=== PATIENT | female | born 1965 | race African-American/Black ===

== ENCOUNTER 2018-01-08 11:49 | Emergency (ER) | payer OTHER ==
[2018-01-08 12:03] VITALS: BP 139/91; PULSE 75; TEMP 98.4; BMI 36.0
[2018-01-08] MEDS ORDERED: KETOROLAC TROMETHAMINE 30 MG/1 ML VIAL IM ONE (12:19)
--- NOTE | 2018-01-08 12:26 | PDOC ---
History of Present Illness - General Chief Complaint: Pain, Acute Stated Complaint: SHOULDER PAIN Time Seen by Provider: 01/08/18 12:14 History Source: Patient Exam Limitations: No Limitations - History of Present Illness Initial Comments: 01/08/18 12:21 Pt with 3 days pain to the side of neck to shoulder radiates down her arm, pt was traveling and slept in umcomfortable bed woke up with stiff neck. Pain worse with movement. Pt has had this in the past . Pt denies trauma no chest pain or sob. Past History - Past Medical History Allergies/Adverse Reactions: Allergies Allergy/AdvReac Type Severity Reaction Status Date / Time No Known Drug Allergies Allergy Verified 01/08/18 12:03 Home Medications: Ambulatory Orders Cyclobenzaprine HCl [Flexeril -] 10 mg PO TID #21 tablet 01/08/18 Naproxen [Naprosyn] 500 mg PO BID PRN #20 tablet 01/08/18 Anemia: No Asthma: No Cancer: No Cardiac Disorders: No CVA: No COPD: No CHF: No Dementia: No Diabetes: Yes GI Disorders: No Disorders: No HTN: Yes Hypercholesterolemia: No Liver Disease: No Seizures: No Thyroid Disease: No - Surgical History Abdominal Surgery: No Appendectomy: No Cardiac Surgery: No Cholecystectomy: No Lung Surgery: No Neurologic Surgery: Yes (SM CYST ON BRAIN) Orthopedic Surgery: Yes (ARTHROSCOPY, TORN LIGAMENT, LEFT) - Immunization History Immunization Up to Date: Yes - Suicide/Smoking/Psychosocial Hx Smoking Status: No Smoking History: Current some day smoker Have you smoked in the past 12 months: Yes Number of Cigarettes Smoked Daily: 2 Information on smoking cessation initiated: No 'Breaking Loose' booklet given: 08/09/12 Hx Alcohol Use: No Drug/Substance Use Hx: No Substance Use Type: None Hx Substance Use Treatment: No Review of Systems - Review of Systems Able to Perform ROS?: Yes Is the patient limited Peruvian proficient: No Constitutional: No: Symptoms Reported HEENTM: No: Symptoms Reported Respiratory: No: Symptoms reported Cardiac (ROS): No: Symptoms Reported ABD/GI: No: Symptoms Reported : No: Symptoms Reported Musculoskeletal: Yes: Symptoms Reported, Neck Pain Integumentary: No: Symptoms Reported Neurological: No: Symptoms reported *Physical Exam - Vital Signs Last Vital Signs Temp Pulse Resp BP Pulse Ox 98.4 F 75 17 139/91 100 07/13/18 12:00 01/08/18 12:00 01/08/18 12:00 01/08/18 12:00 01/08/18 12:00 - Physical Exam General Appearance: Yes: Nourished, Appropriately Dressed HEENT: positive: EOMI, SABRA, Pharynx Normal Neck: positive: Supple, Tender lateral (soft tissu tenderness right side neck ) . negative: Tender, Lymphadenopathy (L), Tender midline Respiratory/Chest: positive: Lungs Clear, Normal Breath Sounds. negative: Chest Tender Cardiovascular: positive: Regular Rhythm, Regular Rate Musculoskeletal: positive: Normal Inspection Extremity: positive: Normal Capillary Refill, Normal Inspection, Other (pain iwth extension fo right arm 4/5 strenght right arm ) Integumentary: positive: Normal Color, Dry, Warm Neurologic: positive: Fully Oriented, Alert, Normal Mood/Affect, Normal Response , Motor Strength 5/5 Medical Decision Making - Medical Decision Making 01/08/18 12:22 cc: neck strain radiates to right arm, reproduced with neck movement and arm movement, ttp soft tissue lateral neck no bony tenderness neg numbness or tingling will give toradol dc with flexeril and naprosyn pt has orthopedist to follow with 01/08/18 12:27 *DC/Admit/Observation/Transfer Diagnosis at time of Disposition: Muscle strain - Discharge Dispostion Disposition: HOME Condition at time of disposition: Good - Prescriptions Prescriptions: Cyclobenzaprine HCl [Flexeril -] 10 mg PO TID #21 tablet Naproxen [Naprosyn] 500 mg PO BID PRN #20 tablet PRN Reason: Pain - Referrals Referrals: Louis Dwyer [Primary Care Provider] - - Patient Instructions Printed Discharge Instructions: DI for Cervical Radiculopathy Additional Instructions: take the naprosyn as directed take the flexeril muscle relaxant as directed apply topical Biofreeze cream as directed warm compresses follow with your doctor in 3-4 days no heavy lifting avoid overuse of the right arm return if any WORSENING symptoms - Post Discharge Activity
[2018-01-08] MEDS ORDERED: KETOROLAC TROMETHAMINE 30 MG/1 ML VIAL ONE (12:27)
== END 2018-01-08 12:51 | disposition home or self-care (01) ==
LOC: JERFT 11:49 → SUPCPDRO 11:49 → JERFT 12:51
PROC: 3E0233Z Introduction of Anti-inflammatory into Muscle, Percutaneous Approach (ICD-10-PCS; principal; 2018-01-08)
DX: S16.1XXA Strain of muscle, fascia and tendon at neck level, initial encounter (principal); X50.0XXA Overexertion from strenuous movement or load, initial encounter; X50.9XXA Other and unspecified overexertion or strenuous movements or postures, initial encounter; Y93.89 Activity, other specified; Y92.89 Other specified places as the place of occurrence of the external cause; Y99.8 Other external cause status
CPT/HCPCS: 96372; 99281-25

== ENCOUNTER 2018-01-09 23:52 | Emergency (ER) | payer OTHER ==
[2018-01-10 00:48] VITALS: BP 147/86; PULSE 67; TEMP 99.1; BMI 36.0
--- NOTE | 2018-01-10 02:12 | PDOC ---
History of Present Illness - General Chief Complaint: Pain Stated Complaint: SHOULDER PAIN Time Seen by Provider: 01/10/18 01:44 History Source: Patient Exam Limitations: No Limitations - History of Present Illness Initial Comments: 01/10/18 02:09 52-year-old woman past medical history of NIDDM, hypertension, right shoulder surgery who presents emergency Department with right shoulder pain for "the past few days," and shortness of breath. Patient states the pain started after she lifted some heavy luggage. She states the pain is sharp nonradiating with a score of 7/10. She denies chest pain, abdominal pain, nausea, vomiting. Past History - Past Medical History Allergies/Adverse Reactions: Allergies Allergy/AdvReac Type Severity Reaction Status Date / Time No Known Drug Allergies Allergy Verified 01/10/18 00:36 Home Medications: Ambulatory Orders Amlodipine Besylate [Norvasc -] 10 mg PO DAILY 01/10/18 Metformin HCl [Metformin HCl ER] 500 mg PO DAILY 01/10/18 Anemia: No Asthma: No Cancer: No Cardiac Disorders: No CVA: No COPD: No CHF: No Dementia: No Diabetes: Yes GI Disorders: No Disorders: No HTN: Yes Hypercholesterolemia: No Liver Disease: No Seizures: No Thyroid Disease: No - Surgical History Abdominal Surgery: No Appendectomy: No Cardiac Surgery: No Cholecystectomy: No Lung Surgery: No Neurologic Surgery: Yes (SM CYST ON BRAIN) Orthopedic Surgery: Yes (ARTHROSCOPY, TORN LIGAMENT, LEFT) - Immunization History Immunization Up to Date: Yes - Suicide/Smoking/Psychosocial Hx Smoking Status: No Smoking History: Never smoked Have you smoked in the past 12 months: Yes Number of Cigarettes Smoked Daily: 2 Information on smoking cessation initiated: No 'Breaking Loose' booklet given: 08/09/12 Hx Alcohol Use: No Drug/Substance Use Hx: No Substance Use Type: None Hx Substance Use Treatment: No Review of Systems - Review of Systems Able to Perform ROS?: Yes Is the patient limited Upper Sorbian proficient: No Constitutional: No: Symptoms Reported HEENTM: No: Symptoms Reported Respiratory: No: Symptoms reported Cardiac (ROS): No: Symptoms Reported ABD/GI: No: Symptoms Reported : No: Symptoms Reported Musculoskeletal: Yes: See HPI Integumentary: No: Symptoms Reported Neurological: No: Symptoms reported Endocrine: No: Symptoms Reported Hematologic/Lymphatic: No: Symptoms Reported *Physical Exam - Vital Signs Last Vital Signs Temp Pulse Resp BP Pulse Ox 99.1 F 67 18 147/86 99 01/10/18 00:36 01/10/18 00:36 01/10/18 00:36 01/10/18 00:36 01/10/18 00:36 - Physical Exam General Appearance: Yes: Appropriately Dressed. No: Apparent Distress HEENT: positive: Normal ENT Inspection Neck: positive: Trachea midline, Supple Respiratory/Chest: positive: Lungs Clear, Normal Breath Sounds. negative: Respiratory Distress, Accessory Muscle Use Cardiovascular: positive: Regular Rhythm, Regular Rate, S1, S2. negative: Edema , Murmur Gastrointestinal/Abdominal: positive: Normal Bowel Sounds, Soft. negative: Tender Musculoskeletal: positive: Normal Inspection. negative: CVA Tenderness Extremity: positive: Normal Inspection Integumentary: positive: Normal Color, Dry, Warm Neurologic: positive: Alert, Normal Response Heart Score/ECG Review - History History: Slightly suspicious - Electrocardiogram EKG: Non specific repolarization disturbance - Age Age: 45-65 - Risk Factors Risk Factors Heart Score: Yes Hx Hypertension, Yes Hx Diabetes Based on the list above the patient has:: 1-2 risk factors - Troponin Troponin: </= normal limit - Score Heart Score - Total: 3 ED Treatment Course - LABORATORY CBC & Chemistry Diagram: 01/10/18 02:20 01/10/18 02:20 Medical Decision Making - Medical Decision Making 01/10/18 02:55 A/P: 52-year-old woman with right shoulder pain status post heavy lifting Lungs clear to auscultation bilaterally RRR. S1 and S2 present. No murmur rub or gallop noted. No palpable deformity present Full active range of motion of right shoulder 2+ radial and ulnar pulses in the right arm Differential diagnoses include ACS, musculoskeletal pain, arthritis Labs, urine, EKG, chest x-ray, reassess 01/10/18 03:22 Laboratory testing is unremarkable with initial troponin of less than 0.02. UA notable for 1+ blood, 3+ leuk esterase, 7 WBCs. Wet read of chest x-ray by me: Angles clear. Cardiac silhouette is within normal limits. No focal consolidations or infiltrates are present. Visualized osseous structures are intact. EKG as interpreted by Dr. Osei and reviewed by me sinus rhythm with rate of 61. Flattened T waves in V3 V4 V5 and V6. Given initial troponin is negative and heart score of 3, I will discharge the patient home to follow-up with her primary doctor. Patient instructed to continue her previous prescribed Flexeril for her right shoulder pain. I discussed the physical exam findings, ancillary test results and final diagnoses with the patient. I answered all of the patient's questions. The patient was satisfied with the care received and felt comfortable with the discharge plan and treatment plan. The patient will call their primary care physician within 24 hours to arrange follow-up and will return to the Emergency Department with any new, persistent or worsening symptoms. *DC/Admit/Observation/Transfer Diagnosis at time of Disposition: Muscle strain Shoulder pain, right Qualifiers: Chronicity: acute Qualified Code(s): M25.511 - Pain in right shoulder - Discharge Dispostion Disposition: HOME Condition at time of disposition: Stable Decision to Admit order: No - Referrals Referrals: Louis Dwyer [Primary Care Provider] - - Patient Instructions Additional Instructions: Continue all previously prescribed medications. Any evaluation you receive in the emergency department is incomplete. The to follow-up with her primary doctor for continued evaluation of her pain. Return to emergency department for any chest pain, shortness of breath, dizziness, nausea, vomiting, abdominal pain or any other concerns. Thank you very much for treasonous provider emergent health care needs. - Post Discharge Activity
[2018-01-10 02:33] LABS: BASO % 1.3 % (0-2.0); EOS % 3.6 % (0-4.5); HEMATOCRIT 40.6 % (32.4-45.2); HEMOGLOBIN 13.3 GM/dL (10.7-15.3); LYMPH % 45.9 % (8-40); MCH 27.7 pg (25.7-33.7); MCHC 32.8 g/dl (32.0-36.0); MEAN CELL VOLUME 84.3 fl (80-96); MEAN PLT VOLUME 7.9 fl (7.5-11.1); MONO % 7.1 % (3.8-10.2); NEUT % 42.1 % (42.8-82.8); PLATELET COUNT 268 K/MM3 (134-434); RBC 4.82 M/mm3 (3.60-5.2); RDW 13.3 % (11.6-15.6)
[2018-01-10 02:45] LABS: INR 0.94 (0.82-1.09); PROTHROMBIN TIME (PATIENT) 10.6 SEC (9.7-13.0)
[2018-01-10 02:54] LABS: ALBUMIN 3.4 g/dl (3.4-5.0); ANION GAP 8 (8-16); BILIRUBIN,TOTAL 0.2 mg/dL (0.2-1.0); BLOOD UREA NITROGEN 17 mg/dL (7-18); CALCIUM 8.4 mg/dL (8.5-10.1); CHLORIDE 106 mmol/L (98-107); CO2 30 mmol/L (21-32); CREATININE 0.8 mg/dL (0.55-1.02); GLUCOSE,RANDOM 121 mg/dL (74-106); MAGNESIUM 2.1 mg/dL (1.8-2.4); POTASSIUM 3.6 mmol/L (3.5-5.1); SGOT/AST 22 U/L (15-37); SGPT/ALT 28 U/L (12-78); SODIUM 144 mmol/L (136-145); TOT PROT 6.6 g/dl (6.4-8.2)
[2018-01-10 02:56] LABS: ALK PHOS 88 U/L (45-117)
[2018-01-10 03:04] LABS: URINE APPEARANCE CLEAR; URINE BILIRUBIN NEGATIVE (<2.0 mg/dL); URINE COLOR LTYELLOW; URINE GLUCOSE (UA) NEGATIVE (NEGATIVE); URINE KETONE NEGATIVE (NEGATIVE); URINE NITRITE NEGATIVE (NEGATIVE); URINE PROTEIN NEGATIVE (NEGATIVE); URINE UROBILINOGEN NEGATIVE mg/dL (0.2-1.0)
[2018-01-10 03:05] LABS: URINE LEUK ESTERASE 3+ (NEGATIVE)
[2018-01-10 03:06] LABS: EPI CELLS RARE /HPF (FEW); URINE MUCUS RARE
--- NOTE | 2018-01-10 14:16 | EKG ---
Test Reason : Blood Pressure : / mmHG Vent. Rate : 061 BPM Atrial Rate : 061 BPM P-R Int : 166 ms QRS Dur : 088 ms QT Int : 414 ms P-R-T Axes : 067 -22 -20 degrees QTc Int : 416 ms NORMAL SINUS RHYTHM POSSIBLE LEFT ATRIAL ENLARGEMENT LEFT VENTRICULAR HYPERTROPHY NONSPECIFIC T WAVE ABNORMALITY ABNORMAL ECG WHEN COMPARED WITH ECG OF 12-MAR-2010 22:21, NO SIGNIFICANT CHANGE WAS FOUND Confirmed by Ry Ram ([id number]) on 01/10/2018 2:15:24 PM Referred By: Confirmed By:Ry Ram
== END 2018-01-10 03:36 | disposition home or self-care (01) ==
LOC: JER 23:52
DX: S46.811A Strain of other muscles, fascia and tendons at shoulder and upper arm level, right arm, initial encounter (principal); X50.0XXA Overexertion from strenuous movement or load, initial encounter; Y93.89 Activity, other specified; Y92.89 Other specified places as the place of occurrence of the external cause; Y99.8 Other external cause status; I10 Essential (primary) hypertension; E11.9 Type 2 diabetes mellitus without complications; Z79.84 Long term (current) use of oral hypoglycemic drugs
CPT/HCPCS: 36415; 71046-TC-FY; 80053; 81003; 81015; 82550; 82553; 83735; 84484; 85025; 85610; 93005; 93010; 99282-25

== ENCOUNTER 2019-03-15 00:09 | Emergency (ER) | payer SELFPAY ==
[2019-03-15 01:14] VITALS: BP 136/88; PULSE 75; TEMP 98.1; BMI 37.5
--- NOTE | 2019-03-15 01:30 | PDOC ---
History of Present Illness - General Chief Complaint: Pain, Acute Stated Complaint: L LEG PAIN Time Seen by Provider: 03/15/19 01:30 History Source: Patient - History of Present Illness Initial Comments: 03/15/19 03:36 53 year old female with b/l knee replacement c/o left leg pain and calf pain. patient reports that she has a history of multiple left knee surgery. patient reports that she has been standing for a long period of time yesterday. denies trauma or injury patient is also c/o right eye lid redness and pain. denies vision changes. 03/15/19 03:40 03/15/19 03:43 Past History - Past Medical History Allergies/Adverse Reactions: Allergies Allergy/AdvReac Type Severity Reaction Status Date / Time No Known Drug Allergies Allergy Verified 03/15/19 01:12 Home Medications: Ambulatory Orders Amlodipine Besylate [Norvasc -] 10 mg PO DAILY 01/10/18 metFORMIN HCL [Metformin HCl ER] 500 mg PO DAILY 01/10/18 Erythromycin 0.5% Eye Ointment [Erythromycin 0.5% Eye Ointment -] 1 applic OP BID #1 tube 03/15/19 Anemia: No Asthma: No Cancer: No Cardiac Disorders: No CVA: No COPD: No CHF: No Dementia: No Diabetes: Yes GI Disorders: No Disorders: No HTN: Yes Hypercholesterolemia: No Liver Disease: No Seizures: No Thyroid Disease: No - Surgical History Abdominal Surgery: No Appendectomy: No Cardiac Surgery: No Cholecystectomy: No Lung Surgery: No Neurologic Surgery: Yes (SM CYST ON BRAIN) Orthopedic Surgery: Yes (ARTHROSCOPY, TORN LIGAMENT, LEFT) - Immunization History Immunization Up to Date: Yes - Suicide/Smoking/Psychosocial Hx Smoking Status: No Smoking History: Unknown if ever smoked Have you smoked in the past 12 months: Yes Number of Cigarettes Smoked Daily: 2 'Breaking Loose' booklet given: 08/09/12 Hx Alcohol Use: No Drug/Substance Use Hx: No Substance Use Type: None Hx Substance Use Treatment: No *Physical Exam - Vital Signs Last Vital Signs Temp Pulse Resp BP Pulse Ox 98.1 F 75 18 136/88 97 03/15/19 01:13 03/15/19 01:13 03/15/19 01:13 03/15/19 01:13 03/15/19 01:13 - Physical Exam General Appearance: Yes: Appropriately Dressed HEENT: positive: Other (left eye lid + hordeleum) Extremity: positive: Normal Capillary Refill, Normal Inspection, Normal Range of Motion, Other (+ pedal pulse b/l ) Integumentary: positive: Normal Color, Dry, Warm Neurologic: positive: Fully Oriented, Alert, Normal Mood/Affect Progress Note - Progress Note Progress Note: A: left leg pain; right eye hordeleum P: US: neg for DVT pain control erythromycin outpatient ortho follow up/ Medical Decision Making - Medical Decision Making US: no dvt *DC/Admit/Observation/Transfer Diagnosis at time of Disposition: Left leg pain, Hordeolum externum right upper eyelid - Discharge Dispostion Disposition: HOME - Prescriptions Prescriptions: Erythromycin 0.5% Eye Ointment [Erythromycin 0.5% Eye Ointment -] 1 applic OP BID #1 tube - Referrals Referrals: Louis Dwyer [Primary Care Provider] - - Patient Instructions Printed Discharge Instructions: DI for Hordeolum Additional Instructions: apply warm compress to right eye. apply a thin layer of erythromycin to lower lid and blink until its spread clear. you may take ibuprofen for pain follow up with an orthopedic doctor as soon as possible. - Post Discharge Activity Forms/Work/School Notes: Back to Work
[2019-03-15] MEDS ORDERED: IBUPROFEN 600 MG TABLET (FP) PO ONE ×2 (03:25→03:48)
== END 2019-03-15 03:55 | disposition home or self-care (01) ==
LOC: JER 00:09
DX: M79.651 Pain in right thigh (principal); M79.18 Myalgia, other site; H00.011 Hordeolum externum right upper eyelid
CPT/HCPCS: 93971-TC; 99282-25